=== PATIENT | female | born 1930 | race Caucasian/White ===

== ENCOUNTER 2022-05-22 16:57 | Observation (INO) | payer MEDICARE, BC ==
[2022-05-22] MEDS ORDERED: Sodium Chloride 0.9% 10 ML Syringe FLUSH PRN (16:59)
[2022-05-22 17:17] LABS: ANION GAP 13.5 mmol/L (5-15)
[2022-05-22] MEDS ORDERED: Iopamidol 755 Mg/ML 75 ML Bottle IVPUSH ONE (18:22)
[2022-05-22] MEDS ORDERED: Sodium Chloride 0.9% 100 ML IV SCH (18:30)
[2022-05-22] MEDS: levETIRAcetam 500 MG Tab PO SCH ×2 (18:57→21:31)
[2022-05-22] MEDS ORDERED: Heparin Sodium 5,000 Units/ML Vial IVPUSH ONE (20:44)
[2022-05-22] MEDS ORDERED: Heparin Sodium/D5W 250 ML IV SCH (20:45)
[2022-05-22] MEDS ORDERED: Ibuprofen 600 MG Tab PO PRN (21:31)
[2022-05-22] MEDS ORDERED: Acetaminophen 325 MG Tab PO PRN (21:31)
[2022-05-22] MEDS ORDERED: Ondansetron 4 MG/2 ML SDV IV PRN (21:31)
[2022-05-22] MEDS ORDERED: levETIRAcetam 500 MG Tab PO SCH (21:45)
[2022-05-23] MEDS: Psyllium Husk Powder Sugar Free 5.85 GM Packet PO SCH ×2 (02:42→08:43)
[2022-05-23 06:36] VITALS: PULSE 64
[2022-05-23 06:56] LABS: ANION GAP 10.8 mmol/L (5-15)
[2022-05-23] MEDS: levETIRAcetam 500 MG Tab PO SCH (08:44)
[2022-05-23 08:45] VITALS: BP 120/52
[2022-05-23] MEDS ORDERED: amLODIPine 5 MG Tab PO SCH (09:00)
[2022-05-23] MEDS ORDERED: Calcium Citrate/Vitamin D3 315 MG-250 Unit Tab PO SCH (09:00)
[2022-05-23] MEDS ORDERED: Losartan 50 MG Tab PO SCH (09:00)
[2022-05-23] MEDS ORDERED: Cholecalciferol (Vitamin D3) 25 MCG Tab PO SCH (09:00)
[2022-05-23] MEDS ORDERED: Carboxymethylcellulose Sodium 0.5% Ophth Soln 15 ML Bottle EYEBOTH SCH (09:00)
[2022-05-23] MEDS ORDERED: Multivitamins with Minerals/Iron/Folic Acid/Lycopene Tab PO SCH (09:00)
[2022-05-23] MEDS ORDERED: Hydrochlorothiazide 25 MG Tab PO SCH (09:00)
[2022-05-24] MEDS ORDERED: Denosumab 60 MG/1 ML Syringe SUBCUT SCH ×2 (10:00)
== END 2022-05-23 10:05 | disposition home or self-care (01) ==
LOC: KA.ED 16:57 → KA.MS 20:45 → UNDOADMOB 21:10 → UNDODISOB 05-23 10:05
PROVIDERS: ADMIT Nurse Practitioner; ATTEND Nurse Practitioner
DX: R56.9 Unspecified convulsions (principal); R79.89 Other specified abnormal findings of blood chemistry; R77.8 Other specified abnormalities of plasma proteins; E87.8 Other disorders of electrolyte and fluid balance, not elsewhere classified; I10 Essential (primary) hypertension; M81.0 Age-related osteoporosis without current pathological fracture; E87.1 Hypo-osmolality and hyponatremia; Z20.822 Contact with and (suspected) exposure to COVID-19; Z79.899 Other long term (current) drug therapy; Z79.1 Long term (current) use of non-steroidal anti-inflammatories (NSAID); Z79.83 Long term (current) use of bisphosphonates; Z98.890 Other specified postprocedural states
CPT/HCPCS: 36415; 71045; 71275; 80053; 80177; 81003; 83605; 83880; 84484; 85025; 85379; 85730; 93005; 93010; 96365; 96366; 96376; 99217; 99220; 99285-25; A9270-GY; G0378; J1644; J3490; Q9967; U0002